=== PATIENT | male | born 1985 | race African-American/Black ===

== ENCOUNTER 2023-04-11 11:46 | Emergency (ER) | payer MEDICAID ==
[~2023-04-11] VITALS: Ht 170.2 cm; Wt 79.0 kg
[2023-04-11 12:39] VITALS: TEMP 97.9
[2023-04-11] MEDS ORDERED: IBUP-1492 PO (13:36)
[2023-04-11 14:08] VITALS: BP 122/77; PULSE 72; RESP 16
== END 2023-04-11 14:56 | disposition home or self-care (01) ==
LOC: EMS 11:46
DX: S69.92XA Unspecified injury of left wrist, hand and finger(s), initial encounter (principal); V89.2XXA Person injured in unspecified motor-vehicle accident, traffic, initial encounter; Y93.89 Activity, other specified; Y92.89 Other specified places as the place of occurrence of the external cause; Y99.8 Other external cause status
CPT/HCPCS: 99285; 73110-TC; 73130-TC; Z7502